=== PATIENT | female | born 1950 | race Caucasian/White ===

== ENCOUNTER 2016-09-16 07:21 | Observation (INO) | payer MEDICARE, MEDICAID ==
[~2016-09-16] VITALS: Ht 157.5 cm; Wt 114.4 kg
--- NOTE | 2016-09-17 07:25 | OR ---
ADMIT: 09/16/2016 RM/LOC: [address] [facility] MR#: [id number] [facility]#: [id number] [address] [facility] [address] [place], [place] [address] LEENA GREGORIO [address] [facility] [address] [place] [address] Operative/Delivery Room Report SEX: F AGE: 66 : 1950 SURGERY DATE: 09/16/2016 SURGEON: Jeovany Noble MD PREOPERATIVE DIAGNOSIS: Right parotid and salivary gland mass. 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 PROCEDURE: Excision of right parotid superficial lobe with dissection and preservation of facial nerve. ANESTHESIA: General oral endotracheal. ESTIMATED BLOOD LOSS: 60 mL. COMPLICATIONS: None. DRAINS: Miguel-Traylor 7 mm. DESCRIPTION OF PROCEDURE: With the patient in supine position under general oral endotracheal anesthesia, her head was turned slightly to the left. The right neck was prepped with ChloraPrep and allowed 3 minutes to dry and the patient was draped sterilely. A parotidectomy incision was made beginning in the preauricular region, carried around the lobule posteriorly-inferiorly to the natural skin crease. The skin flap was then elevated anteriorly at the SMAS fascial layer. This exposed the lateral aspect of the parotid and salivary gland. The gland was then from the tragal cartilage and then posteriorly from the sternomastoid muscle using hemostat. Small vessels were treated by clamping and coagulation. During the dissection, a branch of the sensory nerve was transected. The gland was retracted anteroinferiorly and dissection continued along the tragal cartilage. The facial nerve was identified deep in the tissue plane as the lateral lobe of the gland was large and within the substance of the lateral lobe was a hard, ovoid, multilobulated mass that appeared to be a single mass. There was no extension beyond the saliva gland. The lateral lobe was then resected. The lobe from ADMIT: 09/16/2016 RM/LOC: 618 [facility] MR#: [id number] [address] [facility] [address] [place] [id number] LEENA GREGORIO [address] [facility] [address] [place] [address] Operative/Delivery Room Report SEX: F AGE: 66 : 1950 the surrounding tissues with blunt dissection. The facial nerve remained in view during the procedure. The identity of the facial nerve and its function were confirmed by Vari-Stim nerve stimulator, and following the lateral lobe resection, the gland was again stimulated and all branches of the facial nerve appeared intact and function. The specimen was sent for histologic examination in formalin. Following procedure, there was good hemostasis. A Miguel-Traylor drain 7 mm was placed, brought out the inferior aspect of the incision. Wound was closed in layers with 3-0 chromic catgut to the smallest fascial layer, and 5-0 Prolene interrupted simple stitch to the skin. The drain was sutured to the skin with silk. Bacitracin ointment was applied. She tolerated this very well. She emerged from general anesthesia, and was transferred to the recovery room in good condition. Jeovany Noble MD/ natanael JOB #: [id number] CC: Jeovany Noble, Attending Physician Orlando Patel, Family Physician
[2016-09-18] MEDS ORDERED: COZAAR100 MG PO (19:39)
[2016-09-18] MEDS ORDERED: MOBIC15 MG PO (19:41)
[2016-09-18] MEDS ORDERED: BRINTELLIX20 MG PO (19:41)
[2016-09-18] MEDS ORDERED: DETROL LA DPS4 MG PO (19:42)
[2016-09-18] MEDS ORDERED: TIAZAC180 MG PO (19:42)
[2016-09-18] MEDS ORDERED: CALTRATE-600 W600 MG PO (19:42)
[2016-09-18] MEDS ORDERED: MICRO-K DPS10 MEQ PO (19:42)
[2016-09-18] MEDS ORDERED: MIRALAX PACKET17 GM PO (19:43)
[2016-09-18] MEDS ORDERED: NORCO 7.5-3251 EACH PO (19:43)
[2016-09-18] MEDS ORDERED: FLONASE 0.05% D16 GM NS (19:43)
[2016-09-18] MEDS ORDERED: BACITRACIN15 G1 TP (19:44)
--- NOTE | 2016-09-27 07:06 | HP ---
ADMIT: 09/16/2016 RM/LOC: [facility] MR#: [id number] [address] [facility] [address] [place], [place] [address] LEENA GREGORIO [address] [facility] [address] [place] [address] Pre-OP History and Physical SEX: F AGE: 66 : 1950 DATE OF SERVICE: CHIEF COMPLAINT: Right parotid mass. HISTORY OF PRESENT ILLNESS: Ms. Gregorio is 66 years old. She is admitted at this time for excision of a right parotid mass that is approximately 3.4 cm in diameter by palpation. She has had the mass present for greater than one year. In June of 2015, the mass measured 2.0 cm, and on most recent exam of 09/03/2016, it increased in size to 3.4 cm. It has been asymptomatic and it does not swell when she eats or drinks. She says at times it may feel a little bigger, has never gone away, and she feels that over time, it has enlarged. Surgical treatment has been recommended that would involve superficial parotidectomy with excision of the mass. We have discussed the rationale as well as risks with primary concern being that of the facial nerve. We discussed the function of the nerve, risk of injury, and sequela if injury occurs. We have also discussed postop hypesthesia, Danielle's syndrome, and the resultant surgical scar, which she is in acceptance of and she is admitted for general anesthesia. MEDICATIONS: Medications prior: 1. Potassium. 2. Losartan. 3. Trintellix. 4. Diltiazem. 5. Detrol. 6. Calcium. ALLERGIES: NONE. PAST MEDICAL HISTORY: Appendectomy, bladder suspension surgery, hysterectomy, and tubal ligation. REVIEW OF SYSTEMS: Positive for high blood pressure. She does not have known lower respiratory, GI, , hematologic, or neurologic disorders. SOCIAL HISTORY: She drinks alcohol rarely, caffeine daily in the form of coffee. She does not use tobacco. FAMILY HISTORY: No known anesthetic complications. No coagulopathies. PHYSICAL EXAMINATION: GENERAL: Ms. Gregorio is in no acute distress. ADMIT: 09/16/2016 RM/LOC: [facility] MR#: [id number] [address] [address] LEENA GREGORIO [address] [facility] [address] [place] [address] Pre-OP History and Physical SEX: F AGE: 66 : 1950 HEENT: Her pupils are equal, extraocular movements intact. Ear canals, TMs, and middle ears clear. Nose, mouth, pharynx, and larynx; good symmetry, structure, and function. NECK: 3.4 cm, firm mass, tail of left parotid. No other cervical adenopathy or neck masses palpable. Facial mobility appears intact and symmetrical. LUNGS: Clear. HEART: Rhythm regular. EXTREMITIES: Normal. IMPRESSION: Left parotid mass. PLAN: Excision left parotid mass, superficial parotidectomy. Jeovany Noble MD/ natanael JOB #: [id number] CC: Jeovany Noble, Attending Physician UNKNOWN, Family Physician
== END 2016-09-17 10:05 | disposition home or self-care (01) ==
LOC: WOR 07:21 → 6PED 11:35
PROVIDERS: ADMIT Otolaryngology
PROC: 0CB80ZZ Excision of Right Parotid Gland, Open Approach (ICD-10-PCS; principal; 2016-09-16)
DX: D11.0 Benign neoplasm of parotid gland (principal); I10 Essential (primary) hypertension; M19.90 Unspecified osteoarthritis, unspecified site; G47.30 Sleep apnea, unspecified; Z90.49 Acquired absence of other specified parts of digestive tract; Z90.710 Acquired absence of both cervix and uterus; Z98.890 Other specified postprocedural states

== ENCOUNTER → 2016-10-05 | Outpatient (CLI) | payer MEDICARE, MEDICAID ==
[~2016-10-05] MED LIST: BACITRACIN15 G1 TP; BRINTELLIX20 MG PO; CALTRATE-600 W600 MG PO; COZAAR100 MG PO; DETROL LA DPS4 MG PO; FLONASE 0.05% D16 GM NS; MICRO-K DPS10 MEQ PO; MIRALAX PACKET17 GM PO; MOBIC15 MG PO; NORCO 7.5-3251 EACH PO; TIAZAC180 MG PO
== END | disposition home or self-care (01) ==
LOC: RAD.S 09:18
DX: Z12.31 Encounter for screening mammogram for malignant neoplasm of breast (principal); R92.2 Inconclusive mammogram

== ENCOUNTER → 2016-10-07 | Outpatient (CLI) | payer MEDICARE, MEDICAID | END | disposition home or self-care (01) | LOC: RAD.S 10-06 08:43 | DX: R92.8 Other abnormal and inconclusive findings on diagnostic imaging of breast (principal); N64.89 Other specified disorders of breast ==